=== PATIENT | female | born 1945 | race Caucasian/White ===

== ENCOUNTER 2016-10-08 06:27 | Day surgery (SDC) | payer MEDICARE, OTHER ==
[2016-10-07 13:44] LABS: BASOPHILS 0.3 %; BASOPHILS ABSOLUTE 0.03 10/3/uL (0.0-0.16); IMMATURE GRANULOCYTES 0.3 %; IMMATURE GRANULOCYTES ABSOLUTE 0.03 10/3/uL (0.0-0.11); LYMPHOCYTES 19.8 %; LYMPHOCYTES ABSOLUTE 1.94 10/3/uL (0.67-4.30); MEAN CORPUS HGB CONC 31.9 g/dL (32.0-36.0); MEAN CORPUSCULAR HEMOGLOB 27.3 pg (26.0-34.0); MEAN CORPUSCULAR VOLUME 85.5 fL (80-100); MEAN PLATELET VOLUME 10.1 fL (9.2-13.0); MONOCYTES 6.8 %; MONOCYTES ABSOLUTE 0.67 10/3/uL (0.21-1.20); NEUTROPHILS 71.8 %; NEUTROPHILS ABSOLUTE 7.05 10/3/uL (2.02-8.40); RBC DISTRIBUTION WIDTH 16.8 % (12.0-16.0)
[2016-10-07 13:47] LABS: HEMATOCRIT 38.9 % (36.0-48.0); HEMOGLOBIN 12.4 g/dL (12.0-16.0); MANUAL DIFF NO %; PLATELET COUNT 287 10/3/uL (150-400); RED CELL COUNT 4.55 10/6/uL (4.0-5.6); WHITE BLOOD CELLS 9.8 10/3/uL (4.5-10.5)
[2016-10-07 13:51] LABS: CHLORIDE, SERUM 105 MMOL/L (96-112); CREATININE 0.69 MG/DL (0.55-1.02); GFR AFRICAN AMERICAN 102 ML/MIN (>=60); GFR NON AFRICAN AMERICAN 88 ML/MIN (>=60); POTASSIUM, SERUM 3.9 MMOL/L (3.5-5.3); SODIUM, SERUM 143 MMOL/L (135-148)
[2016-10-07 13:52] LABS: BUN (BLOOD UREA NITROGEN) 17 MG/DL (6-23); CALCIUM, SERUM 8.8 MG/DL (8.5-10.4); CO2 (CARBON DIOXIDE) 27 MMOL/L (24-34); GLUCOSE, SERUM 89 MG/DL (60-99)
--- NOTE | ~2016-10-08 | OP ---
Record Of Operation [facility] [address] [place]. [address] NAME: CHRIS URIOSTEGUI : 45 STATUS : REG [facility] PAT#: [id number] AGE: 70 ADM/REG DATE : 10/08/16 MR#: [id number] REPORT SERV DATE: 10/08/16 DICTATED BY: ISAC THOMAS DATE: 10/08/16 REPORT STATUS : Draft TRANSCRIBED BY: MODL DATE: 10/08/16 DATE OF PROCEDURE: 10/08/2016 PREOPERATIVE DIAGNOSES: 1. 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 2. Fibromyalgia. 3. Rheumatoid arthritis. POSTOPERATIVE DIAGNOSES: 1. 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 2. Fibromyalgia. 3. Rheumatoid arthritis. PROCEDURE: Removal of left subclavian Port-A-Cath. ANESTHESIA: MAC. SURGEON: Isac Thomas M.D. COMPLICATIONS: None. DRAINS: None. ESTIMATED BLOOD LOSS: 5 mL. OPERATIVE TECHNIQUE: The patient was brought to the operating room, placed on the table in supine position. She had preoperative antibiotics. She had sequential hose in place. She voided prior to procedure. She had adequate IV sedation and MAC anesthesia and was prepped and draped in sterile fashion and time-out was completed. Local anesthesia was instilled to the previous skin incision site. A 15 blade knife was used to make an elliptical incision to excise her old scar and was taken down to the subcutaneous tissues to the level of the catheter. The Port-A-Cath catheter was then identified and it was encircled. It was ligated with a 2-0 Vicryl suture as it was removed and the tunnel from the catheter was suture-ligated. The catheter was then excised from the chest wall and discarded. The wound was irrigated. Subcutaneous tissues were reapproximated using running 3-0 Vicryl suture followed by running Monocryl, subcuticular stitch, and Dermabond. She tolerated the procedure well and was taken to the recovery room in stable condition. All sponge and needle counts were reported correct. YUAN/YUMI Isac Thomas M.D. Record Of Operation [facility] [id number] [place]. [address] NAME: CHRIS URIOSTEGUI : 45 STATUS : REG [facility] PAT#: [id number] AGE: 70 ADM/REG DATE : 10/08/16 MR#: [id number] REPORT SERV DATE: 10/08/16 DICTATED BY: ISAC THOMAS DATE: 10/08/16 REPORT STATUS : Draft TRANSCRIBED BY: MODL DATE: 10/08/16 / [id number] CC: Pepper Hook M.D.
[~2016-10-08 06:27] MED LIST: ACET500CAP PO; AMB10 PO; AMB5 PO; ATV.5 PO; BETIMOL0.5 % OPH; CALCIUM 600 MG PO; CALTRA600D PO; CALTRAT600 PO; CENTRUM PO; CENTRUM TAB1 TAB PO; CHEMOTHERAPY IV; CIP5 PO; CRESTOR20 MG PO; CRESTOR5 MG PO; DURAFLEX PO; ERY-TAB250 MG PO; FOLIC PO; FOLINIC PLUS PO; GLYCOLAX PO; GOLIMUMAB IV; LEVAQUIN5T PO; LEVAQUIN750 MG PO; LOTEMAX OPH SUSP5 ML OPH; LOTEMAX0.5 % OP; MARLYN FORMULA 50 PO; MELATONIN5 M1 PO; METAMUCIL CAN7 OZ PO; METPAKSF PO; MIRALAXPKT PO; NEUR100 PO; NEXIUM40 PO; OMNICEF300 PO; P10; P10 PO; P5 PO; PR25 PO; PRELIEF PO; PRILOSEC40 MG PO; PYR100B PO; REG PO; REMICADE IV; SAVELLA12.5 MG PO; TESS PO; TIMOLOL MAL0.5 % OPH; TRAVATAN Z0.004 % OPH; TREXALL15 MG PO; TUMSROLL PO; URISPAS 100 MG100 MG PO; VALTREX5 PO; ZOFRAN8 PO; ZYRTEC ALLGY10 MG PO; [UNRECOGNIZED DRUG - OTHER] PO; [UNRECOGNIZED DRUG - OTHER] PO
== END 2016-10-08 14:38 | disposition home or self-care (01) ==
LOC: SDC 06:27
PROVIDERS: Surgery
PROC: 0JPT0XZ Removal of Tunneled Vascular Access Device from Trunk Subcutaneous Tissue and Fascia, Open Approach (ICD-10-PCS; principal; 2016-10-08 07:45)
DX: Z45.2 Encounter for adjustment and management of vascular access device (principal); M79.7 Fibromyalgia; M06.9 Rheumatoid arthritis, unspecified; Z88.5 Allergy status to narcotic agent; Z88.0 Allergy status to penicillin
CPT/HCPCS: 36415; 80048; 85025; 93005; A9270-GY; J0690; J2405; J2550; J3010; Q9967

== ENCOUNTER 2017-03-18 07:04 | Emergency (ER) | payer MEDICARE, OTHER ==
[2017-03-18 07:44] LABS: BASOPHILS 0.6 %; BASOPHILS ABSOLUTE 0.04 10/3/uL (0.0-0.16); EOSINOPHILS ABSOLUTE 0.35 10/3/uL (0.0-0.53); ER CBC TAT 0 Hrs 05 Mins; HEMATOCRIT 39.1 % (36.0-48.0); HEMOGLOBIN 12.8 g/dL (12.0-16.0); IMMATURE GRANULOCYTES 0.3 %; IMMATURE GRANULOCYTES ABSOLUTE 0.02 10/3/uL (0.0-0.11); LYMPHOCYTES 21.8 %; LYMPHOCYTES ABSOLUTE 1.54 10/3/uL (0.67-4.30); MANUAL DIFF NO %; MEAN CORPUS HGB CONC 32.7 g/dL (32.0-36.0); MEAN CORPUSCULAR HEMOGLOB 30.2 pg (26.0-34.0); MEAN CORPUSCULAR VOLUME 92.2 fL (80-100); MEAN PLATELET VOLUME 9.7 fL (9.2-13.0); MONOCYTES 11.2 %; MONOCYTES ABSOLUTE 0.79 10/3/uL (0.21-1.20); NEUTROPHILS 61.1 %; NEUTROPHILS ABSOLUTE 4.32 10/3/uL (2.02-8.40); PLATELET COUNT 312 10/3/uL (150-400); RBC DISTRIBUTION WIDTH 18.4 % (12.0-16.0); RED CELL COUNT 4.24 10/6/uL (4.0-5.6); WHITE BLOOD CELLS 7.1 10/3/uL (4.5-10.5)
[2017-03-18 07:54] LABS: ASCORBIC ACID (UR NOT ORDER) NEG (NEG); BILIRUBIN, URINE NEGATIVE (NEG); ER URINALYSIS TAT 0 Hrs 15 Mins; KETONE, URINE NEGATIVE (NEG); LEUKOCYTE ESTERASE(NOT OR SMALL (NEG); NITRITE (URINE) NEG (NEG); WBC (NOT ORDERED) (RFLEX) 20 (0-5)
[2017-03-18 08:09] LABS: BUN (BLOOD UREA NITROGEN) 9 MG/DL (6-23); CALCIUM, SERUM 9.4 MG/DL (8.5-10.4); CHLORIDE, SERUM 105 MMOL/L (96-112); CO2 (CARBON DIOXIDE) 27 MMOL/L (24-34); CREATININE 0.61 MG/DL (0.55-1.02); GFR AFRICAN AMERICAN 106 ML/MIN (>=60); GFR NON AFRICAN AMERICAN 91 ML/MIN (>=60); GLUCOSE, SERUM 94 MG/DL (60-99); POTASSIUM, SERUM 3.4 MMOL/L (3.5-5.3); SODIUM, SERUM 140 MMOL/L (135-148)
== END 2017-03-18 08:44 | disposition home or self-care (01) ==
LOC: ER 07:04
PROVIDERS: Student in an Organized Health Care Education/Training Program
DX: I10 Essential (primary) hypertension (principal); R51 Headache; I11.0 Hypertensive heart disease with heart failure; I50.9 Heart failure, unspecified; K21.9 Gastro-esophageal reflux disease without esophagitis; E78.5 Hyperlipidemia, unspecified; Z87.01 Personal history of pneumonia (recurrent); Z88.0 Allergy status to penicillin; Z88.5 Allergy status to narcotic agent; Z88.8 Allergy status to other drugs, medicaments and biological substances; Z79.52 Long term (current) use of systemic steroids; Z79.899 Other long term (current) drug therapy
CPT/HCPCS: 70450; 80048; 81001; 84443; 85025; 87086; 99284